=== PATIENT | female | born 1940 | race Native Hawaiian/Other Pacific Islander ===

== ENCOUNTER 2018-12-14 08:23 | Outpatient (CLI) | payer OTHER, BC ==
[2018-12-14 09:14] LABS: PLATELET COUNT 165 K/uL (152-353)
[2018-12-14 09:28] LABS: POTASSIUM 4.2 mmol/L (3.6-5.2)
== END 2018-12-14 23:59 | disposition home or self-care (01) ==
LOC: LABW 08:23
PROVIDERS: Internal Medicine
DX: I10 Essential (primary) hypertension (principal); R73.01 Impaired fasting glucose; E78.00 Pure hypercholesterolemia, unspecified
CPT/HCPCS: 36415; 80053; 80061; 83036; 85027

== ENCOUNTER 2019-06-23 08:20 | Outpatient (CLI) | payer OTHER, BC ==
[2019-06-23 08:37] LABS: PLATELET COUNT 200 K/uL (152-353)
[2019-06-23 08:50] LABS: POTASSIUM 4.3 mmol/L (3.6-5.2)
== END 2019-06-23 21:00 | disposition home or self-care (01) ==
LOC: LABW 08:20
PROVIDERS: Internal Medicine
DX: I10 Essential (primary) hypertension (principal); R73.01 Impaired fasting glucose; E78.00 Pure hypercholesterolemia, unspecified
CPT/HCPCS: 36415; 80053; 80061; 83036; 85027

== ENCOUNTER 2019-08-16 09:17 | Outpatient (CLI) | payer OTHER, BC ==
[2019-08-16 09:35] LABS: PLATELET COUNT 183 K/uL (152-353)
== END 2019-08-16 19:09 | disposition home or self-care (01) ==
LOC: LABW 09:17
PROVIDERS: Nurse Practitioner
DX: K62.5 Hemorrhage of anus and rectum (principal)
CPT/HCPCS: 36415; 80053; 85027

== ENCOUNTER 2020-01-18 09:11 | Outpatient (CLI) | payer OTHER, BC ==
[2020-01-18 09:45] LABS: PLATELET COUNT 176 K/uL (152-353)
== END 2020-01-18 18:59 | disposition home or self-care (01) ==
LOC: LABW 09:11
PROVIDERS: Internal Medicine
DX: I10 Essential (primary) hypertension (principal); R73.01 Impaired fasting glucose; E78.00 Pure hypercholesterolemia, unspecified
CPT/HCPCS: 36415; 80053; 80061; 83036; 85027

== ENCOUNTER 2020-07-10 08:30 | Outpatient (CLI) | payer OTHER, BC ==
[2020-07-10 09:03] LABS: POTASSIUM 4.2 mmol/L (3.6-5.2)
[2020-07-10 10:02] LABS: PLATELET COUNT 163 K/uL (152-353)
== END 2020-07-10 23:16 | disposition home or self-care (01) ==
LOC: LABW 08:30
PROVIDERS: Internal Medicine
DX: I10 Essential (primary) hypertension (principal); E78.2 Mixed hyperlipidemia; R73.01 Impaired fasting glucose
CPT/HCPCS: 36415; 80053; 80061; 83036; 85027

== ENCOUNTER 2021-01-22 08:08 | Outpatient (CLI) | payer BC ==
[2021-01-22 08:40] LABS: POTASSIUM 4.1 mmol/L (3.6-5.2)
[2021-01-22 08:58] LABS: PLATELET COUNT 169 K/uL (152-353)
== END 2021-01-22 21:54 | disposition home or self-care (01) ==
LOC: LABW 08:08
PROVIDERS: ATTEND Internal Medicine
DX: I10 Essential (primary) hypertension (principal); R73.01 Impaired fasting glucose; E78.2 Mixed hyperlipidemia
CPT/HCPCS: 36415; 80053; 80061; 83036; 85027

== ENCOUNTER 2021-07-09 11:17 | Outpatient (CLI) | payer BC ==
[2021-07-09 11:39] LABS: PLATELET COUNT 195 K/uL (152-353)
== END 2021-07-09 20:37 | disposition home or self-care (01) ==
LOC: LABW 11:17
PROVIDERS: ATTEND Internal Medicine
DX: E78.2 Mixed hyperlipidemia (principal); R73.01 Impaired fasting glucose; I10 Essential (primary) hypertension
CPT/HCPCS: 36415; 80053; 80061; 83036; 85027

== ENCOUNTER 2021-11-17 18:50 | Observation (INO) | payer BC ==
[~2021-11-17] VITALS: Ht 162.6 cm; Wt 81.7 kg
[2021-11-17 20:00] VITALS: BP 132/53; TEMP 97.9
[2021-11-17 20:46] LABS: PLATELET COUNT 169 K/uL (152-353)
[2021-11-17 21:05] LABS: POTASSIUM 3.9 mmol/L (3.6-5.2)
[2021-11-18] VITALS: BP 119/67; TEMP 98
[2021-11-18 01:20] VITALS: BP 132/53; TEMP 97.9; Ht 162.6 cm; Wt 81.7 kg
[2021-11-18 04:00] VITALS: BP 115/65; TEMP 98
[2021-11-18 08:00] VITALS: BP 109/61; TEMP 97.6
[2021-11-18 11:16] LABS: PLATELET COUNT 177 K/uL (152-353)
[2021-11-18 11:29] LABS: POTASSIUM 4.1 mmol/L (3.6-5.2)
[2021-11-18 12:00] VITALS: BP 114/67; TEMP 98.8
[2021-11-18] MEDS ORDERED: ZESTRIL40 MG PO (14:13)
[2021-11-18] MEDS ORDERED: AMLODIPINE BESYLATE PO (14:14)
[2021-11-18] MEDS ORDERED: FAMOTIDINE20 MG PO (14:14)
[2021-11-18] MEDS ORDERED: ASPIR-8181 MG PO (14:15)
[2021-11-18] MEDS ORDERED: LIPITOR20 MG PO (14:15)
[2021-11-18] MEDS ORDERED: POT CHLORIDE10 ME1 PO (14:16)
[2021-11-18 16:00] VITALS: BP 116/75; TEMP 98.5
== END 2021-11-18 18:11 | disposition home or self-care (01) ==
LOC: MED/SURG 18:50
PROVIDERS: ADMIT Family Medicine; ATTEND Family Medicine
DX: I48.91 Unspecified atrial fibrillation (principal); I10 Essential (primary) hypertension; Z20.828 Contact with and (suspected) exposure to other viral communicable diseases; R07.9 Chest pain, unspecified
CPT/HCPCS: 36415; 80053; 82550; 83735; 84100; 84484; 85027; 87635; 93005; 99220; G0378; G0379; U0003

== ENCOUNTER 2022-01-27 07:12 | Outpatient (CLI) | payer BC ==
[~2022-01-27 07:12] MED LIST: AMLODIPINE BESYLATE PO; ASPIR-8181 MG PO; FAMOTIDINE20 MG PO; LIPITOR20 MG PO; POT CHLORIDE10 ME1 PO; ZESTRIL40 MG PO
[2022-01-27 07:44] LABS: PLATELET COUNT 186 K/uL (152-353)
[2022-01-27 08:11] LABS: POTASSIUM 4.2 mmol/L (3.6-5.2)
== END 2022-01-27 18:54 | disposition home or self-care (01) ==
LOC: LABW 07:12
PROVIDERS: ATTEND Internal Medicine
DX: Z00.00 Encounter for general adult medical examination without abnormal findings (principal); R73.01 Impaired fasting glucose; E78.2 Mixed hyperlipidemia
CPT/HCPCS: 36415; 80053; 80061; 83036; 85027

== ENCOUNTER 2022-04-05 07:07 | Emergency (ER) | payer BC ==
[~2022-04-05] VITALS: Ht 162.6 cm; Wt 81.6 kg
[2022-04-05 07:26] VITALS: BP 142/74; TEMP 97.1
== END 2022-04-05 09:52 | disposition still patient (30) ==
LOC: ED 07:07
DX: M54.59 Other low back pain (principal); M25.561 Pain in right knee; Z96.651 Presence of right artificial knee joint
CPT/HCPCS: 81000; 96372; 99283; J1885

== ENCOUNTER 2022-09-03 08:38 | Outpatient (CLI) | payer BC ==
[2022-09-03 09:03] LABS: PLATELET COUNT 177 K/uL (152-353)
== END 2022-09-03 19:02 | disposition home or self-care (01) ==
LOC: LABW 08:38
PROVIDERS: ATTEND Internal Medicine
DX: Z00.00 Encounter for general adult medical examination without abnormal findings (principal); I10 Essential (primary) hypertension; E78.2 Mixed hyperlipidemia; R73.01 Impaired fasting glucose
CPT/HCPCS: 36415; 80053; 80061; 83036; 85027

== ENCOUNTER 2023-03-25 09:47 | Outpatient (CLI) | payer BC ==
[2023-03-25 10:13] LABS: PLATELET COUNT 154 K/uL (152-353)
[2023-03-25 10:33] LABS: POTASSIUM 4.1 mmol/L (3.6-5.2)
== END 2023-03-25 17:00 ==
LOC: LABW 09:47
PROVIDERS: ATTEND Internal Medicine
DX: Z00.00 Encounter for general adult medical examination without abnormal findings (principal); E78.2 Mixed hyperlipidemia; R73.01 Impaired fasting glucose; Z79.899 Other long term (current) drug therapy
CPT/HCPCS: 36415; 80053; 80061; 83036; 83735; 84436; 84443; 84479; 85027